=== PATIENT | female | born 2000 | race American Indian/Alaskan Native ===

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

== ENCOUNTER 2021-08-25 16:37 | Emergency (ER) | payer MEDICAID ==
[2021-08-25 16:44] VITALS: BP 131/82; PULSE 103
[2021-08-25] MEDS ORDERED: Ketorolac 30 MG/ML SDV IM ONE (16:47)
[2021-08-25] MEDS ORDERED: Acetaminophen/HYDROcodone 325-5 MG Tab PO ONE (16:48)
== END 2021-08-25 17:30 | disposition home or self-care (01) ==
LOC: DL.ED 16:37
DX: S82.892A Other fracture of left lower leg, initial encounter for closed fracture (principal); X50.1XXA Overexertion from prolonged static or awkward postures, initial encounter; Y92.019 Unspecified place in single-family (private) house as the place of occurrence of the external cause
CPT/HCPCS: 73610; 96372; 99283; A9270; J1885

== ENCOUNTER 2022-02-13 17:13 | Emergency (ER) | payer MEDICAID | END 2022-02-13 18:18 | disposition left against medical advice (07) | LOC: DL.ED 17:13 | DX: Z53.21 Procedure and treatment not carried out due to patient leaving prior to being seen by health care provider (principal) ==

== ENCOUNTER 2022-10-29 04:19 | Emergency (ER) | payer MEDICAID ==
[2022-10-29 04:32] VITALS: BP 106/80; PULSE 52
[2022-10-29] MEDS ORDERED: Tetracaine HCl/PF 0.5% 4 ML Bottle OP ONE (04:37)
[2022-10-29] MEDS ORDERED: cefTRIAXone 1 GM, Lidocaine 1% 2.1 ML IM ONE ×2 (04:37)
== END 2022-10-29 04:58 | disposition home or self-care (01) ==
LOC: DL.ED 04:19
DX: H66.91 Otitis media, unspecified, right ear (principal); R09.81 Nasal congestion; J45.909 Unspecified asthma, uncomplicated
CPT/HCPCS: 96372; 99282; 99283; J0696; J3490

== ENCOUNTER 2023-02-23 09:07 | Emergency (ER) | payer MEDICAID ==
[2023-02-23 09:21] VITALS: BP 120/82; PULSE 58
[2023-02-23] MEDS ORDERED: Ibuprofen 800 MG Tab PO ONE (09:55)
[2023-02-23] MEDS ORDERED: Acetaminophen 325 MG Tab PO ONE (09:55)
== END 2023-02-23 10:08 | disposition home or self-care (01) ==
LOC: DL.ED 09:07
DX: S93.401A Sprain of unspecified ligament of right ankle, initial encounter (principal); X50.1XXA Overexertion from prolonged static or awkward postures, initial encounter
CPT/HCPCS: 73610; 99284; A9270; 99282

== ENCOUNTER 2024-04-17 03:23 | Emergency (ER) | payer MEDICAID ==
[2024-04-17 04:08] VITALS: BP 105/70; PULSE 68
== END 2024-04-17 03:54 | disposition left against medical advice (07) ==
LOC: DL.ED 03:23
DX: F15.10 Other stimulant abuse, uncomplicated (principal); J45.909 Unspecified asthma, uncomplicated
CPT/HCPCS: 93005; 99285

== ENCOUNTER 2024-04-18 03:51 | Emergency (ER) | payer MEDICAID ==
[2024-04-18 04:05] VITALS: BP 120/73; PULSE 70
== END 2024-04-18 04:17 ==
LOC: DL.ED 03:51
DX: Z53.21 Procedure and treatment not carried out due to patient leaving prior to being seen by health care provider (principal)

== ENCOUNTER 2025-02-20 02:45 | Emergency (ER) | payer MEDICAID ==
[2025-02-20] MEDS: Ketorolac 30 MG/ML SDV IM ONE (03:53)
[2025-02-20 04:10] VITALS: BP 121/80; PULSE 68
== END 2025-02-20 04:30 | disposition home or self-care (01) ==
LOC: DL.ED 02:45
DX: S22.32XA Fracture of one rib, left side, initial encounter for closed fracture (principal); F17.210 Nicotine dependence, cigarettes, uncomplicated; Y04.2XXA Assault by strike against or bumped into by another person, initial encounter
CPT/HCPCS: 71111; 96372; 99283; J1885

== ENCOUNTER 2025-05-23 11:30 | Emergency (ER) | payer MEDICAID ==
[2025-05-23 11:42] VITALS: BP 129/78; PULSE 72
[2025-05-23 11:43] LABS: APPEARANCE,URINE SLIGHTLY CLOUDY (CLEAR); GLUCOSE,URINE NEGATIVE (NEGATIVE); OCCULT BLOOD,URINE TRACE-INTACT (NEGATIVE)
[2025-05-23 11:53] LABS: EPITHELIAL CELLS,URINE MODERATE /HPF (NOT SEEN)
== END 2025-05-23 13:00 | disposition home or self-care (01) ==
LOC: DL.ED 11:30
DX: N39.0 Urinary tract infection, site not specified (principal); A59.9 Trichomoniasis, unspecified; Z32.02 Encounter for pregnancy test, result negative
CPT/HCPCS: 81001; 81025; 86592; 87086; 87210; 87491; 87563; 87591; 96372; 99283; 99284; A9270; J0696